=== PATIENT | male | born 2000 | race Caucasian/White ===

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

== ENCOUNTER 2018-03-01 17:16 | Inpatient (IN) | payer BC, OTHER ==
[2018-03-01 18:34] LABS: BASO % 0.3 % (0.0-1.0); EOS # 0.1 10^3/uL (0.0-0.50); EOS % 1.5 % (0.0-3.0); HEMOGLOBIN 14.9 g/dl (13.5-17.5); IMMATURE GRANULOCYTE % 0.2 % (0-3.0); LYMPH # 2.4 10^3/uL (1.5-6.5); LYMPH % 26.6 % (24.0-44.0); MEAN CORPUSCULAR HEMOGLOBIN 29.4 pg (27.0-33.0); MEAN CORPUSCULAR HGB CONC 33.9 g/dl (32.0-36.5); MEAN CORPUSCULAR VOLUME 86.8 fl (80.0-96.0); MONO # 0.8 10^3/uL (0.0-0.8); NEUTROPHILS # 5.7 10^3/uL (1.8-7.7); NEUTROPHILS % 62.4 % (36.0-66.0); PLATELET COUNT, AUTOMATED 283 10^3/uL (150-450); RED BLOOD COUNT 5.07 10^6/uL (4.30-6.10); RED CELL DISTRIBUTION WIDTH 12.4 % (11.5-14.5); WHITE BLOOD COUNT 9.2 10^3/uL (4.0-10.0)
[2018-03-01 19:00] LABS: ANION GAP 6 MEQ/L (8-16); BLOOD UREA NITROGEN 8 MG/DL (7-18); CALCIUM LEVEL 9.5 MG/DL (8.5-10.1); CARBON DIOXIDE LEVEL 28 MEQ/L (21-32); CHLORIDE LEVEL 105 MEQ/L (98-107); CK-MB VALUE MASS < 1.0 NG/ML (<3.6); CPK CREATINE PHOSPHOKINASE 131 U/L (39-308); CREATININE FOR GFR 0.78 MG/DL (0.70-1.30); GLUCOSE, FASTING 87 MG/DL (70-100); MB/CK RELATIVE INDEX 0.76 (< OR =4); POTASSIUM SERUM 4.4 MEQ/L (3.5-5.1); SODIUM LEVEL 139 MEQ/L (136-145); TROPONIN I < 0.02 NG/ML (< 0.10)
[2018-03-01 19:02] LABS: D-DIMER QUANT < 270.0 ng/ml (<500)
[2018-03-01] MEDS ORDERED: ISOVUE-370 76% 100ML VIAL (Q9967) As Ordered (19:04)
[2018-03-01 19:17] LABS: INR 1.05; PROTHROMBIN TIME 13.8 SECONDS (12.1-14.4)
[2018-03-01] MEDS ORDERED: LEVALBUTEROL 1.25 MG/0.5 ML CONCENTRATE NEB NEB (20:30)
[2018-03-01] MEDS ORDERED: NORCO, ANEXSIA 5/325MG TABLET (HYDROcodone/ACETAMINOPHEN) PO (20:30)
[2018-03-01] MEDS ORDERED: BISACODYL 10 MG SUPP PR (20:30)
[2018-03-01] MEDS ORDERED: FLUMAZENIL 0.5 MG/5 ML VIAL As Ordered (21:01)
[2018-03-01] MEDS ORDERED: MIDAZOLAM INJ 2 MG/2 ML VIAL (J2250) As Ordered ×3 (21:01→21:03)
[2018-03-01] MEDS ORDERED: LIDOCAINE 1% MDV 20ML VIAL As Ordered (21:02)
[2018-03-01] MEDS: MIDAZOLAM INJ 2 MG/2 ML VIAL (J2250) IV ×2 (21:50→21:52)
[2018-03-01] MEDS: LIDOCAINE 1% MDV 20ML VIAL SC (21:55)
[2018-03-01] MEDS: KETOROLAC 30 MG/ML VIAL (J1885) IV (22:45)
[2018-03-01] MEDS: KCL 20MEQ IN D5/NS 1000ML 1,000 ML IV (22:47)
[2018-03-01] MEDS: DOCUSATE SODIUM 100 MG CAP PO (22:47)
[2018-03-01] MEDS: HEPARIN SOD (PORCINE) 5000 UNITS/ML VIAL SC (22:50)
[2018-03-01] MEDS: PERCOCET 5MG/325MG TAB PO (23:16)
[2018-03-02] MEDS: LEVALBUTEROL 1.25 MG/0.5 ML CONCENTRATE NEB NEB ×4 (02:45→20:32)
[2018-03-02 05:30] LABS: BASO % 0.2 % (0.0-1.0); EOS # 0.1 10^3/uL (0.0-0.50); EOS % 0.7 % (0.0-3.0); HEMATOCRIT 38.6 % (42.0-52.0); IMMATURE GRANULOCYTE % 0.2 % (0-3.0); LYMPH # 3.1 10^3/uL (1.5-6.5); LYMPH % 32.4 % (24.0-44.0); MEAN CORPUSCULAR HEMOGLOBIN 29.5 pg (27.0-33.0); MEAN CORPUSCULAR HGB CONC 33.7 g/dl (32.0-36.5); MEAN CORPUSCULAR VOLUME 87.7 fl (80.0-96.0); MONO # 0.9 10^3/uL (0.0-0.8); MONO % 9.2 % (0.0-5.0); NEUTROPHILS # 5.5 10^3/uL (1.8-7.7); NEUTROPHILS % 57.3 % (36.0-66.0); PLATELET COUNT, AUTOMATED 249 10^3/uL (150-450); RED CELL DISTRIBUTION WIDTH 12.2 % (11.5-14.5); WHITE BLOOD COUNT 9.6 10^3/uL (4.0-10.0)
[2018-03-02] MEDS: KETOROLAC 30 MG/ML VIAL (J1885) IV ×4 (05:45→21:59)
[2018-03-02 05:52] LABS: ANION GAP 7 MEQ/L (8-16); BLOOD UREA NITROGEN 9 MG/DL (7-18); CALCIUM LEVEL 8.6 MG/DL (8.5-10.1); CARBON DIOXIDE LEVEL 27 MEQ/L (21-32); CHLORIDE LEVEL 107 MEQ/L (98-107); CREATININE FOR GFR 0.74 MG/DL (0.70-1.30); GLUCOSE, FASTING 102 MG/DL (70-100); POTASSIUM SERUM 3.3 MEQ/L (3.5-5.1); SODIUM LEVEL 141 MEQ/L (136-145)
[2018-03-02] MEDS: PERCOCET 5MG/325MG TAB PO (08:12)
[2018-03-02] MEDS: HEPARIN SOD (PORCINE) 5000 UNITS/ML VIAL SC ×2 (09:37→20:08)
[2018-03-02] MEDS: DOCUSATE SODIUM 100 MG CAP PO ×2 (09:37→20:09)
[2018-03-02] MEDS: PANTOPRAZOLE 40MG TAB (PROTONIX) PO (09:37)
[2018-03-02] MEDS: MOM 30ML SUSPENSION UDC PO (09:37)
[2018-03-02] MEDS ORDERED: SLF 3 ML SYR IV (12:15)
[2018-03-02] MEDS: POTASSIUM CHLORIDE 10 MEQ SR TABLET PO (12:17)
[2018-03-02] MEDS: SLF 3 ML SYR IV ×2 (16:17→22:00)
[2018-03-02] MEDS: ACETAMINOPHEN TAB 650MG DOSE (2X325MG) PO (16:36)
[2018-03-02] MEDS: ONDANSETRON 4MG/2ML VIAL (J2405) IV (18:47)
[2018-03-03] MEDS: LEVALBUTEROL 1.25 MG/0.5 ML CONCENTRATE NEB NEB ×4 (00:41→20:38)
[2018-03-03] MEDS: KETOROLAC 30 MG/ML VIAL (J1885) IV ×4 (03:37→21:23)
[2018-03-03] MEDS: SLF 3 ML SYR IV ×3 (03:38→21:23)
[2018-03-03 04:38] LABS: BASO % 0.3 % (0.0-1.0); EOS # 0.1 10^3/uL (0.0-0.50); EOS % 2.1 % (0.0-3.0); HEMATOCRIT 36.5 % (42.0-52.0); HEMOGLOBIN 12.2 g/dl (13.5-17.5); IMMATURE GRANULOCYTE % 0.2 % (0-3.0); LYMPH # 2.5 10^3/uL (1.5-6.5); LYMPH % 37.7 % (24.0-44.0); MEAN CORPUSCULAR HEMOGLOBIN 29.5 pg (27.0-33.0); MEAN CORPUSCULAR HGB CONC 33.4 g/dl (32.0-36.5); MEAN CORPUSCULAR VOLUME 88.2 fl (80.0-96.0); MONO # 0.8 10^3/uL (0.0-0.8); MONO % 12.5 % (0.0-5.0); NEUTROPHILS # 3.2 10^3/uL (1.8-7.7); NEUTROPHILS % 47.2 % (36.0-66.0); PLATELET COUNT, AUTOMATED 220 10^3/uL (150-450); RED BLOOD COUNT 4.14 10^6/uL (4.30-6.10); RED CELL DISTRIBUTION WIDTH 12.4 % (11.5-14.5); WHITE BLOOD COUNT 6.7 10^3/uL (4.0-10.0)
[2018-03-03 05:01] LABS: ANION GAP 7 MEQ/L (8-16); BLOOD UREA NITROGEN 9 MG/DL (7-18); CALCIUM LEVEL 8.5 MG/DL (8.5-10.1); CARBON DIOXIDE LEVEL 28 MEQ/L (21-32); CHLORIDE LEVEL 109 MEQ/L (98-107); CREATININE FOR GFR 0.87 MG/DL (0.70-1.30); GLUCOSE, FASTING 91 MG/DL (70-100); POTASSIUM SERUM 3.6 MEQ/L (3.5-5.1); SODIUM LEVEL 144 MEQ/L (136-145)
[2018-03-03] MEDS: PERCOCET 5MG/325MG TAB PO (07:46)
[2018-03-03] MEDS: HEPARIN SOD (PORCINE) 5000 UNITS/ML VIAL SC ×2 (08:56→21:22)
[2018-03-03] MEDS: DOCUSATE SODIUM 100 MG CAP PO ×2 (08:56→21:22)
[2018-03-03] MEDS: MOM 30ML SUSPENSION UDC PO (08:56)
[2018-03-03] MEDS: PANTOPRAZOLE 40MG TAB (PROTONIX) PO (08:56)
[2018-03-03] MEDS: ACETAMINOPHEN TAB 650MG DOSE (2X325MG) PO ×2 (15:16→21:22)
[2018-03-03] MEDS: NS 1,000 ML IV (20:00)
[2018-03-04] MEDS: LEVALBUTEROL 1.25 MG/0.5 ML CONCENTRATE NEB NEB ×2 (04:02→07:19)
[2018-03-04 04:53] LABS: BASO % 0.3 % (0.0-1.0); EOS # 0.2 10^3/uL (0.0-0.50); EOS % 3.2 % (0.0-3.0); HEMATOCRIT 37.6 % (42.0-52.0); HEMOGLOBIN 12.5 g/dl (13.5-17.5); IMMATURE GRANULOCYTE % 0.2 % (0-3.0); LYMPH # 2.6 10^3/uL (1.5-6.5); LYMPH % 44.3 % (24.0-44.0); MEAN CORPUSCULAR HEMOGLOBIN 29.6 pg (27.0-33.0); MEAN CORPUSCULAR HGB CONC 33.2 g/dl (32.0-36.5); MEAN CORPUSCULAR VOLUME 89.1 fl (80.0-96.0); MONO # 0.6 10^3/uL (0.0-0.8); MONO % 10.4 % (0.0-5.0); NEUTROPHILS # 2.5 10^3/uL (1.8-7.7); NEUTROPHILS % 41.6 % (36.0-66.0); PLATELET COUNT, AUTOMATED 214 10^3/uL (150-450); RED BLOOD COUNT 4.22 10^6/uL (4.30-6.10); RED CELL DISTRIBUTION WIDTH 12.4 % (11.5-14.5); WHITE BLOOD COUNT 5.9 10^3/uL (4.0-10.0)
[2018-03-04 05:06] LABS: ANION GAP 7 MEQ/L (8-16); BLOOD UREA NITROGEN 8 MG/DL (7-18); CARBON DIOXIDE LEVEL 28 MEQ/L (21-32); CHLORIDE LEVEL 108 MEQ/L (98-107); GLUCOSE, FASTING 91 MG/DL (70-100); POTASSIUM SERUM 4.2 MEQ/L (3.5-5.1); SODIUM LEVEL 143 MEQ/L (136-145)
[2018-03-04] MEDS: SLF 3 ML SYR IV (05:51)
[2018-03-04] MEDS: KETOROLAC 30 MG/ML VIAL (J1885) IV ×2 (05:51→09:16)
[2018-03-04] MEDS: HEPARIN SOD (PORCINE) 5000 UNITS/ML VIAL SC (08:54)
[2018-03-04] MEDS: DOCUSATE SODIUM 100 MG CAP PO (08:54)
[2018-03-04] MEDS: MOM 30ML SUSPENSION UDC PO (08:54)
[2018-03-04] MEDS: PANTOPRAZOLE 40MG TAB (PROTONIX) PO (08:55)
== END 2018-03-04 10:59 | disposition home or self-care (01) | DRG 143 ==
LOC: M ED 17:16 → M ED INP 20:24 → M PCU 20:51
PROC: 0W9930Z Drainage of Right Pleural Cavity with Drainage Device, Percutaneous Approach (ICD-10-PCS; principal; 2018-03-01)
DX: J93.83 Other pneumothorax (principal); J98.11 Atelectasis

== ENCOUNTER → 2018-03-07 | Outpatient (CLI) | payer BC, OTHER | LOC: M SMT 14:32 | DX: J93.11 Primary spontaneous pneumothorax (principal) | CPT/HCPCS: 71046 ==

== ENCOUNTER → 2018-03-14 | Outpatient (CLI) | payer BC, OTHER | LOC: M SMT 08:26 | DX: Z09 Encounter for follow-up examination after completed treatment for conditions other than malignant neoplasm (principal); Z87.09 Personal history of other diseases of the respiratory system | CPT/HCPCS: 71046 ==

== ENCOUNTER → 2018-04-09 | Outpatient (REF) | payer BC, OTHER | LOC: M LAB REF 22:10 | DX: J02.9 Acute pharyngitis, unspecified (principal) ==

== ENCOUNTER → 2018-04-11 | Outpatient (CLI) | payer BC, OTHER | LOC: M SMT 09:06 | DX: Z87.09 Personal history of other diseases of the respiratory system (principal) | CPT/HCPCS: 71046 ==

== ENCOUNTER → 2018-05-13 | Outpatient (CLI) | payer BC, OTHER | LOC: M SMT 13:06 | DX: R07.1 Chest pain on breathing (principal) | CPT/HCPCS: 71046 ==

== ENCOUNTER → 2018-05-23 | Outpatient (CLI) | payer BC, OTHER | LOC: M CARPUL 08:56 | DX: J93.11 Primary spontaneous pneumothorax (principal) | CPT/HCPCS: 93306 ==

== ENCOUNTER → 2018-09-11 | Outpatient (CLI) | payer BC, OTHER ==
[~2018-09-11] MED LIST: TRET0.1C19 TOP
--- NOTE | 2018-09-11 15:56 | REP ---
Clinical: Acute chest pain . Comparison: 05/13/2018 . Technique: PA and lateral. Findings: The mediastinum and cardiac silhouette are normal. The lung pérez are clear and without acute consolidation, effusion, or pneumothorax. The skeletal structures are intact and normal. Impression: 1. No acute cardiopulmonary process. Electronically Signed by Bayron Gillis MD 09/11/2018 03:48 P
== END ==
LOC: M WUC 15:12
PROVIDERS: ATTEND Thoracic Surgery (Cardiothoracic Vascular Surgery)
DX: R07.9 Chest pain, unspecified (principal)

== ENCOUNTER → 2018-09-19 | Outpatient (REF) | payer BC, OTHER ==
[2018-09-19 17:06] LABS: INFLUENZA A AMPLIFICATION NEGATIVE (NEGATIVE); INFLUENZA B AMPLIFICATION NEGATIVE (NEGATIVE)
== END ==
LOC: M LAB REF 16:20
PROVIDERS: ATTEND Physician Assistant
DX: J11.1 Influenza due to unidentified influenza virus with other respiratory manifestations (principal)

== ENCOUNTER → 2019-05-03 | Outpatient (REF) | payer BC, OTHER | LOC: M LAB REF 14:31 | PROVIDERS: ATTEND Physician Assistant Medical | DX: J02.9 Acute pharyngitis, unspecified (principal) ==

== ENCOUNTER → 2019-11-04 | Outpatient (CLI) | payer BC, OTHER ==
--- NOTE | 2019-11-05 01:29 | REPPI ---
Clinical: Chest pain with history of spontaneous pneumothorax . Comparison: 09/11/2018 . Technique: PA and lateral. Findings: The mediastinum and cardiac silhouette are normal. The lung pérez are clear and without acute consolidation, effusion, or pneumothorax. The skeletal structures are intact and normal. Impression: 1. No acute cardiopulmonary process. 2. No evidence for pneumothorax. Electronically Signed by Bayron Gillis MD 11/05/2019 01:21 A
== END ==
LOC: M PLAIMG 15:18
PROVIDERS: ATTEND Thoracic Surgery (Cardiothoracic Vascular Surgery)
DX: J93.11 Primary spontaneous pneumothorax (principal)